=== PATIENT | male | born 1985 | race Caucasian/White ===

== ENCOUNTER 2018-06-17 19:24 | Emergency (ER) | payer SELFPAY ==
[~2018-06-17] VITALS: Ht 180.3 cm; Wt 68.0 kg
[2018-06-17] MEDS ORDERED: NKM (19:36)
[2018-06-17 19:40] VITALS: BP 137/92
--- NOTE | 2018-06-17 19:40 | NUR ---
ED Nurse Note: pt walked in due to swelling on the right forehead. pt stated he fainted and fell and hit his forehead. denies history of syncope. Pt reports pain 10/22. NAD. AO4. VSS. Accompanied by family member.
--- NOTE | 2018-06-17 20:46 | Emergency Room Report ---
History of Present Illness General Chief Complaint: Head Injury Source: Patient Present Illness HPI 32-year-old male presents to the emergency department after syncopal episode where he also hit his head. He reports 5/10 in severity ttp and ARAGON to the right side of his forehead x 1 hour Episode was witnessed and reports that patient lost consciousness for several seconds and then was confused for a minute or so upon awakening. He admits to drinking alcohol prior to incident. Denies history of syncope area patient reports that he started to feel, funny/dizzy and got up to go get some water from the kitchen. Patient denies chest pain palpitations or significant past medical history. Patient does not describe vertigo he describes some imbalance. Patient states that his symptoms have subsided at this time however he does have a headache from where he hit his head. Patient denies visual changes, nausea vomiting or changes to his hearing. Patient denies weakness in the extremities inability to walk or loss of gross motor movements. Patient denies paresthesias. Patient denies taking blood thinning medications. Allergies: Coded Allergies: No Known Allergies (Unverified , 06/17/18) Patient History Past Medical History: see triage record Past Surgical History: none Pertinent Family History: none Reviewed Nursing Documentation: PMH: Agreed; PSxH: Agreed Nursing Documentation-PMH Past Medical History: No Stated History Review of Systems All Other Systems: negative except mentioned in HPI Physical Exam Vital Signs Date Time Temp Pulse Resp B/P (MAP) Pulse Ox O2 Delivery O2 Flow Rate FiO2 06/17/18 19:29 97.7 94 16 137/92 99 Room Air Medical Decision Making PA Attestation Dr. Mittal is my supervising Physician whom patient management has been discussed with. Diagnostic Impression: Primary Impression: Concussion Qualified Codes: S06.0X1A - Concussion with loss of consciousness of 30 minutes or less, initial encounter ER Course 32-year-old male presents to the emergency department after syncopal episode where he also hit his head. He reports 5/10 in severity ttp and ARAGON to the right side of his forehead x 1 hour Episode was witnessed and reports that patient lost consciousness for several seconds and then was confused for a minute or so upon awakening. He admits to drinking alcohol prior to incident. Denies history of syncope area patient reports that he started to feel, funny/dizzy and got up to go get some water from the kitchen. Patient denies chest pain palpitations or significant past medical history. Patient does not describe vertigo he describes some imbalance. Patient states that his symptoms have subsided at this time however he does have a headache from where he hit his head. Patient denies visual changes, nausea vomiting or changes to his hearing. Patient denies weakness in the extremities inability to walk or loss of gross motor movements. Patient denies paresthesias. Patient denies taking blood thinning medications. Ddx considered but are not limited to Fracture, dislocation, contusion, concussion Sprain/Strain/Spasm, hematoma Vital signs: are WNL, pt. is afebrile H&PE are most consistent with contusion, no evidence of focal neurological deficit, no loss of consciousness. ORDERS: none required at this time. PE and HPI do not indicate CT at this time. ED INTERVENTIONS: - Considered CT imaging, however pt. was concerned about ED visit cost and wants to limit expensive testing as much as possible . I discussed red flag symptoms to keep an eye out for that would indicate prompt return to the ED. - Pt. and responsible alliance party verbalize their understanding and agreement with proposed treatment plan. DISCHARGE: At this time pt. is stable for d/c to home. Will provide printed patient care instructions, and any necessary prescriptions. Care plan and follow up instructions have been discussed with the patient prior to discharge. Last Vital Signs Date Time Temp Pulse Resp B/P (MAP) Pulse Ox O2 Delivery O2 Flow Rate FiO2 06/17/18 19:29 97.7 94 16 137/92 99 Room Air Disposition: HOME, SELF-CARE Condition: Stable Scripts Acetaminophen* (TYLENOL EXTRA STRENGTH*) 500 Mg Tablet 500 MG ORAL Q6H, #30 TAB 0 Refills Prov: Radha Grullon 06/17/18 Patient Instructions: Concussion, Adult, [id number], Head Injury, Adult, Easy -to-Read, Vasovagal Syncope, Adult Additional Instructions: Take medications as directed. Follow up with a PRIMARY CARE PROVIDER in 3-5 days For a referral to have NEUROLOGIST evaluation, even if your symptoms have resolved. --Please review list of primary care clinics, if you do not already have a primary care provider Return sooner to ED if new symptoms occur, or current symptoms become worse. - Please note that this Emergency Department Report was dictated using [employer] stamper technology software, occasionally this can lead to erroneous entry secondary to interpretation by the dictation equipment. Radha Grullon Jun 17, 2018 20:46
[2018-06-17] MEDS ORDERED: TYLENOL EXTRA500 MG ORAL (20:48)
[2018-06-17 20:51] VITALS: BP 137/92
--- NOTE | 2018-06-17 20:51 | NUR ---
ED Nurse Note; Patient cleared for discharge per ERMD. AO4. NAD. VSS. Accompanied by family member. Patient given prescriptions and discharge instructions; verbalized understanding. ID band removed. Patient ambulated out with all personal belongings with steady gait.
== END 2018-06-17 20:51 | disposition home or self-care (01) ==
LOC: EMR 20:00
DX: S06.0X1A Concussion with loss of consciousness of 30 minutes or less, initial encounter (principal); W19.XXXA Unspecified fall, initial encounter; Y92.9 Unspecified place or not applicable
CPT/HCPCS: 93005; 99282